=== PATIENT | male | born 2000 | race Caucasian/White ===

== ENCOUNTER 2024-04-01 12:13 | Emergency (ER) | payer SELFPAY ==
[~2024-04-01] VITALS: Ht 172.7 cm; Wt 91.0 kg
[2024-04-01 12:16] VITALS: O2SAT 97
[2024-04-01 12:52] LABS: BASOPHILS % 0.2 % (0.0-2.0); EOSINOPHILS % 1.2 % (0.0-5.0); HEMATOCRIT. 44.8 % (42.0-52.0); HEMOGLOBIN. 15.5 g/dL (14.0-18.0); LYMPHOCYTES % 17.8 % (20.0-50.0); MEAN CORPUSCULAR HGB CONC 34.5 g/dL (31.0-37.0); MEAN CORPUSCULAR VOLUME 86.9 fL (80.0-94.0); MEAN PLATELET VOLUME 7.7 fl (7.4-10.4); MONOCYTES % 9.2 % (2.0-8.0); NEUTROPHILS % 71.6 % (40.0-76.0); PLATELET 180 x1000/uL (130-400); RED BLOOD CELL COUNT 5.15 mill/uL (4.7-6.1); WHITE BLOOD COUNT 11.4 x1000/uL (4.5-11.0)
[2024-04-01 13:01] LABS: CHLORIDE 105 mEq/L (98-107); PARTIAL THROMBOPLASTIN TIME 26.5 sec (23.4-31.0); POTASSIUM 4.2 mEq/L (3.5-5.1); PROTHROMBIN TIME 10.9 sec (9.6-11.0); SODIUM 138 mEq/L (136-145)
[2024-04-01 13:02] LABS: CALCIUM 9.1 mg/dL (8.7-10.4); CARBON DIOXIDE 26 mEq/L (21-32)
[2024-04-01 13:07] LABS: CREATININE 0.9 mg/dL (0.6-1.3); GLUCOSE 103 mg/dL (70-105)
[2024-04-01 13:08] LABS: UREA NITROGEN BLOOD 15 mg/dL (9-23)
[2024-04-01 13:09] LABS: ALANINE AMINOTRANSFERASE 126 IU/L (10-49); ALBUMIN 4.4 g/dL (3.2-4.8); ASPARTATE AMINOTRANSFERASE 89 IU/L (<34); BILIRUBIN DIRECT 0.4 mg/dL (<=3.0)
[2024-04-01 13:10] LABS: PROTEIN TOTAL 7.3 g/dL (6.0-8.3)
[2024-04-01 13:12] LABS: ETHANOL BLOOD < 10 mg/dL (<10); TROPONIN I HIGH SENSITIVITY < 4 ng/L (3.0-53)
[2024-04-01] MEDS: IOHEXOL-300 100 ML BOTTLE ONE (16:15)
[2024-04-01] MEDS: SODIUM CHLORIDE 0.9% 1,000 ML IV ONE (16:51)
[2024-04-01 17:01] LABS: CLARITY URINE CLOUDY (CLEAR); COLOR URINE ORANGE (YELLOW); GLUCOSE URINE NEGATIVE (NEGATIVE); KETONES URINE NEGATIVE (NEGATIVE); LEUKOCYTE ESTERASE URINE 1+ (NEGATIVE); NITRITE URINE NEGATIVE (NEGATIVE); OCCULT BLOOD URINE 3+ (NEGATIVE); PROTEIN URINE 1+ (NEGATIVE); SPECIFIC GRAVITY URINE 1.048 (1.005-1.030)
[2024-04-01] MEDS: MORPHINE SULFATE 4 MG/ML INJ (FOR IV/IM USE) IV ONE (17:08)
[2024-04-01] MEDS: ONDANSETRON HCL 4MG/2ML INJ IV ONE (17:08)
[2024-04-01 17:14] LABS: BACTERIA URINE 2+; RBC URINE TNTC /hpf (0-2); SQUAMOUS EPITHELIAL CELL URINE 1+ /lpf (RARE/1+)
[2024-04-01 18:49] VITALS: BP 137/78; PULSE 92; RESP 20; TEMP 98.2
[2024-04-01] MEDS ORDERED: IOHEXOL-300 100 ML BOTTLE ONE (23:42)
[2024-04-02 08:48] LABS: *AMPHETAMINES SCREEN URINE NEGATIVE (NEGATIVE); *BARBITURATES SCREEN URINE NEGATIVE (NEGATIVE); *BENZODIAZEPINES SCREEN URINE NEGATIVE (NEGATIVE); *COCAINE SCREEN URINE NEGATIVE (NEGATIVE)
[2024-04-02 08:49] LABS: CANNABINOID URINE SCREEN NEGATIVE (NEGATIVE); ECSTASY MDMA SCREEN URINE NEGATIVE (NEGATIVE); METHADONE URINE SCREEN NEGATIVE (NEGATIVE); OPIATES URINE SCREEN NEGATIVE (NEGATIVE); PHENCYCLIDINE URINE SCREEN NEGATIVE (NEGATIVE)
== END 2024-04-01 19:00 | disposition short-term general hospital (02) ==
LOC: ER 12:13
DX: S37.011A Minor contusion of right kidney, initial encounter (principal); S36.029A Unspecified contusion of spleen, initial encounter; V19.9XXA Pedal cyclist (driver) (passenger) injured in unspecified traffic accident, initial encounter; Y93.89 Activity, other specified; Y92.89 Other specified places as the place of occurrence of the external cause; Y99.8 Other external cause status
CPT/HCPCS: 80076; 80305; 80048; 81003; 80320; 83880; 83690; 85025; 85610; 85730; 86850; 86900; 86901; 84484; 36415; 71045; 71260; 74177; 93005; 96361; 96374; 96375; 99285; Q9967; J2405; J2270; J7030; G0480